=== PATIENT | female | born 1970 | race Two or more races ===

== ENCOUNTER 2017-08-13 12:45 | Outpatient (CLI) | payer OTHER | END 2017-08-13 14:09 | disposition home or self-care (01) | LOC: MAMO-SONO 12:45 | DX: Z12.31 Encounter for screening mammogram for malignant neoplasm of breast (principal); N63.10 Unspecified lump in the right breast, unspecified quadrant; N63.20 Unspecified lump in the left breast, unspecified quadrant; N60.19 Diffuse cystic mastopathy of unspecified breast ==

== ENCOUNTER 2017-08-22 10:03 | Outpatient (CLI) | payer OTHER | END 2017-08-22 14:23 | disposition home or self-care (01) | LOC: SONOGRAMA 10:03 | DX: N84.0 Polyp of corpus uteri (principal); D25.9 Leiomyoma of uterus, unspecified ==

== ENCOUNTER 2018-01-01 06:33 | Day surgery (SDC) | payer OTHER ==
[~2018-01-01 06:33] MED LIST: [UNRECOGNIZED DRUG - OTHER]
== END 2018-01-01 12:31 | disposition home or self-care (01) ==
LOC: CIR.AMB 06:33
DX: N84.0 Polyp of corpus uteri (principal)

== ENCOUNTER 2024-05-27 10:01 | Outpatient (CLI) | payer OTHER ==
[2024-05-27 11:11] LABS: HEMATOCRIT 38.7 % (36.0-45.00); MEAN CELL VOLUME 89.5 fL (80.00-100.00); MEAN CORPUSCULAR HEMOGLOBIN 30.2 pg (27.00-32.0); MEAN CORPUSCULAR HGB CONC 33.7 g/dl (32.0-36.0); PLATELET COUNT 333 K/uL (150-450); RED BLOOD COUNT 4.32 M/uL (4.00-6.00); RED CELL DISTRIBUTION WIDTH 15.2 % (11.5-14.5)
[2024-05-27 12:16] LABS: T3 TOTAL 1.3 ng/ml (0.846-2.02)
[2024-05-27 12:17] LABS: T4 FREE 0.92 NG/ML (0.76-1.46); TSH 1.8 uIU/mL (0.358-3.74)
[2024-05-28 09:08] LABS: FOLLICLE STIMULATING HORMONE 17.6 mIU/mL (.)
== END 2024-05-27 10:03 | disposition home or self-care (01) ==
LOC: LAB 10:01
PROVIDERS: ATTEND Internal Medicine
DX: N95.1 Menopausal and female climacteric states (principal); E28.1 Androgen excess; N93.9 Abnormal uterine and vaginal bleeding, unspecified; D65 Disseminated intravascular coagulation [defibrination syndrome]; K51.911 Ulcerative colitis, unspecified with rectal bleeding; E13.9 Other specified diabetes mellitus without complications; E78.5 Hyperlipidemia, unspecified; N39.0 Urinary tract infection, site not specified; E55.9 Vitamin D deficiency, unspecified; D51.9 Vitamin B12 deficiency anemia, unspecified

== ENCOUNTER 2024-05-27 10:37 | Outpatient (CLI) | payer OTHER | END 2024-05-27 10:46 | disposition home or self-care (01) | LOC: SONOGRAMA 10:37 | PROVIDERS: ATTEND Internal Medicine | DX: E04.1 Nontoxic single thyroid nodule (principal); R10.2 Pelvic and perineal pain ==